=== PATIENT | male | born 1955 | race Caucasian/White ===

== ENCOUNTER → 2019-11-13 | Outpatient (CLI) | payer MEDICARE, OTHER ==
[~2019-11-13] MED LIST: DABI150C PO; EZET10TA20 PO; IBUP400T18 PO; IPRA4AER IH; LEVO112T4 PO; MULT-246 PO; NITR0.4T22 SL; OMEP20CA16 PO; SOTA120T27 PO; ZOLP10TA4 PO
--- NOTE | 2019-11-13 12:57 | RAD ---
EXAM: Lumbar spine, 3 views. HISTORY: Pain. COMPARISON: None. FINDINGS: 3 views of the lumbar spine are obtained. There is minimal grade 1 anterolisthesis of L4 and L5, measuring 3 mm. There is disc space narrowing at L5-S1. There is multilevel endplate remodeling. There is facet arthropathy at the mid lower lumbar levels. There is levocurvature centered at the thoracolumbar junction. IMPRESSION: 1. Multilevel degenerative change, described above. 2. Minimal grade 1 anterolisthesis of L4 on L5. Electronically signed by: Jennifer Mancuso MD (11/13/2019 12:53 PM) [email or web address]
== END | disposition home or self-care (01) ==
LOC: DXRAD 12:02
PROVIDERS: ATTEND Family Medicine
DX: M47.816 Spondylosis without myelopathy or radiculopathy, lumbar region (principal); M43.16 Spondylolisthesis, lumbar region; M43.8X5 Other specified deforming dorsopathies, thoracolumbar region
CPT/HCPCS: 72100